=== PATIENT | male | born 2000 | race Caucasian/White ===

== ENCOUNTER 2021-11-04 11:30 | Emergency (ER) | payer OTHER ==
[~2021-11-04 11:30] MED LIST: IBUPROFEN400 MG PO
[2021-11-04 13:09] LABS: BUN/CREAT RATIO (CALC) 12.5 RATIO; CREATININE 1.04 mg/dL (0.67-1.17); POTASSIUM 3.7 mmol/L (3.5-5.1)
[2021-11-04 13:19] LABS: BASOPHIL 0.4 % (0-2); EOSINOPHIL 0.5 % (0-5); HCT 40.8 % (42.0-52.0); HGB 14.4 g/dl (13.2-18.0); LYMPHOCYTE 24.1 % (15-48); MCH 29.6 pg (25.0-31.0); MCHC 35.3 g/dL (32.0-36.0); MCV 83.8 fL (78.0-100.0); MONOCYTE 6.2 % (0-12); MPV 9.3 fL (6.0-9.5); NEUTROPHIL 68.4 % (41-80); NRBC 0; PLT 244 K/uL (150-400); RBC 4.87 M/uL (4.70-6.00); RDW 11.6 % (11.5-14.0); WBC 5.6 K/uL (4.0-10.5)
== END 2021-11-04 14:37 | disposition home or self-care (01) ==
LOC: FER 11:30
PROVIDERS: Nurse Practitioner Family
DX: F41.9 Anxiety disorder, unspecified (principal); T67.9XXA Effect of heat and light, unspecified, initial encounter; X30.XXXA Exposure to excessive natural heat, initial encounter; Y92.89 Other specified places as the place of occurrence of the external cause; Y99.0 Civilian activity done for income or pay
CPT/HCPCS: 36415; 80048; 85025; 93005; J1885; J7030